=== PATIENT | male | born 1985 | race Caucasian/White ===

== ENCOUNTER 2016-12-28 17:00 | Emergency (ER) | payer SELFPAY ==
[~2016-12-28] VITALS: Ht 188 cm; Wt 80.2 kg
[2016-12-28 17:02] VITALS: BP 118/78; PULSE 79; TEMP 36.9; O2SAT 100; Ht 188 cm; Wt 80.2 kg
--- NOTE | 2016-12-28 19:21 | DIAGNOSTIC IMAGING REPORT ---
RIGHT HEEL MIN 2 VIEWS CLINICAL HISTORY: right, heel pain Right COMPARISON STUDY: None. FINDINGS: Tiny plantar heel spur. No fracture or dislocation within the calcaneus. Mild soft tissue swelling at the plantar surface of the heel. No radiopaque foreign bodies. IMPRESSION: No fractures within the right calcaneus. Mild soft tissue swelling along the plantar surface. Electronically signed by: Olivier Boston M.D. 12/28/2016 7:20 PM Dictated Date/Time: 12/28/2016 7:19 PM
[2016-12-28] MEDS ORDERED: IBUP-1451 PO (19:36)
[2016-12-28] MEDS ORDERED: TRAM-10 PO (19:36)
--- NOTE | 2016-12-28 19:38 | EMERGENCY ROOM VISIT NOTE ---
ED Visit Note First contact with patient: 18:26 CHIEF COMPLAINT: Right heel pain times one week, mid and low back pain 1 week HISTORY OF PRESENT ILLNESS: Patient is a right-hand dominant 31-year-old white male who presents to the emergency department for evaluation of multiple complaints. Primarily he is concerned as he has been having pain in the right heel over 1 week. He notes feeling a lump in the heel, medially. He has pain with walking. He denies any trauma or injury to the area. He has not worn any new shoes. He has no symptoms on the left side. He has performed nothing for his symptoms. Secondly, the patient reports pain in the mid right back between the spine and the scapula, and pain in the low back. The low back pain is chronic for him. The mid back pain has been going on for about a week. He works in construction. He denies any radiation of the pain into his arms or his legs. No numbness, tingling or weakness to the extremities. No bowel or bladder incontinence. He rates his pain an 8/10. REVIEW OF SYSTEMS: Review of systems as per HPI. All other systems reviewed were negative. At least 6 systems reviewed. PMH: Electronic medical records are reviewed and summarized as above/below. See Problem List. SOCIAL HISTORY: Patient lives at home. Smoker. Works in construction. He reports that he is from [place] and moved here about 4 months ago. PHYSICAL EXAM: Vital Signs: Reviewed Nurse's notes. MENTAL STATUS: Patient is a well-appearing 31-year-old white male who is awake and alert and in no acute distress. EXTREMITIES: Examination of the right heel show slight increased callus formation medially where the patient has discomfort. He is tender to palpation, but the skin is intact. There are no corns no erythema or breaks in the skin. Certainly no signs of infection. He does not have any pain along the plantar fascia. No pain over the Achilles tendon or its insertion. Ankle and foot range of motion are full. The right lower extremity is neurovascularly intact. SPINE: Examination is patient's back does not show any curvature consistent with scoliosis. He has reproducible muscle tenderness in the right paraspinous muscular and rhomboid muscular distribution, between the thoracic spine and the scapula. Palpable spasms are noted. The patient has diffuse paraspinous muscle tenderness in the lumbar area. No pain over the SI joint or the sciatic notch. Flexion, extension, rotation and lateral bending are full. Negative straight leg raise testing bilaterally. Achilles and patellar DTRs are equal and symmetrical. EMERGENCY DEPARTMENT COURSE: X-ray of the right heel reveals slight soft tissue swelling, no fracture or bony abnormality. Differential diagnoses entertained included stress fracture, heel spur, cellulitis, tendinitis, bursitis, plantar fasciitis, among others. The patient was encouraged to wear supportive shoes, ice and take ibuprofen for discomfort. With regards to his back, he is experiencing some localized musculoskeletal soreness and spasm. This appears to be chronic in nature. It was not felt that there was any need for any diagnostic imaging as the patient does not provide a history of direct trauma to the mid or low back. The patient was prescribed tramadol for pain. I certainly do not suspect cauda equina syndrome or acute cord compression. Patient was reviewed in the [facility] Prescription Drug Monitoring Program, and there were no red flags noted, however, the patient reported moving to the area only recently. He reported that he was from [place] yet gave a [place] mailing address and has a [place] drivers license. He was also noted to be here with another chronic pain patient who had trouble over from [place]. His coach driver was a family member of the other patient. Given this I did elect to treat him with nonnarcotic medications. Upon discharge, the patient told me I could "keep the prescription for ibuprofen." I told him that it had already been sent electronically to the pharmacy. He left without receiving written discharge instructions. Current/Historical Medications Scheduled Ibuprofen Tab (Motrin), 800 MG PO TIDM Scheduled PRN Tramadol (Ultram), 1-2 TABS PO Q4H PRN for Pain Allergies Coded Allergies: No Known Allergies (Unverified , 12/28/16) Vital Signs Date Time Temp Pulse Resp B/P Pulse Ox O2 Delivery O2 Flow Rate FiO2 12/28/16 17:02 36.9 79 16 118/78 100 Room Air Departure Information Impression Primary Impression: Pain of right heel Additional Impressions: Spasm of thoracic back muscle Low back pain Prescriptions Ibuprofen Tab (MOTRIN) 800 Mg Tab 800 MG PO TIDM, #60 TAB Prov: Katlyn Hahn PA 12/28/16 Tramadol (Ultram) 50 Mg Tab 1-2 TABS PO Q4H Y for Pain, #20 TAB For Initial Treatment Prov: Katlyn Hahn PA 12/28/16 Referrals No Doctor, Assigned (PCP) Patient Instructions My [facility] Additional Instructions Tramadol (Ultram) 50mg: Take 1-2 pills every four hours for breakthrough pain. Avoid alcohol, operating machinery or dangerous equipment, working on ladders or roofs, DRIVING, or situations where being under the influence may be dangerous. It is recommended to use an uned-[id number]-[id number] stool softener such as Colace, 100mg twice daily while taking this medication to avoid constipation. Ibuprofen(Motrin, Advil) may be used for fever or pain. Use 800 mg 3 times daily with food. Avoid using more than 2400mg in a 24 hour period. Do not use 2400mg per day for more than three consecutive days without physician direction. Prolonged inappropriate use can lead to stomach upset or ulcers. This medication can be taken if you need to drive, work, or perform activities which may be dangerous when taking narcotic pain medication. Acetaminophen(Tylenol) may be used for fever or pain. Use 1000mg every six hours as needed. Avoid using more than 3000mg in a 24 hour period. This medication can be taken if you need to drive, work, or perform activities which may be dangerous when taking narcotic pain medication. Ice compresses to the heel for 20 minutes at a time four times daily for 2-3 days. Moist heat to the mid and low back and gentle stretching and range of motion exercises to help reduce stiffness and spasm. Rest and elevate your injury. Continue current medications. Return to the ER immediately for any numbness, tingling, severe pain, extreme swelling in the extremity or as needed. Follow-up with orthopedics or your family doctor if your symptoms are not improving in the next 7 days. Problem Qualifiers
== END 2016-12-28 19:40 | disposition home or self-care (01) ==
LOC: C.EDB 17:01 → C.EDD 19:40
DX: M79.671 Pain in right foot (principal); M62.830 Muscle spasm of back; M54.5 Low back pain

== ENCOUNTER 2017-02-08 16:56 | Emergency (ER) | payer OTHER ==
[~2017-02-08] VITALS: Ht 188 cm; Wt 80.4 kg
[~2017-02-08 16:56] MED LIST: IBUP-1451 PO; TRAM-10 PO
[2017-02-08 16:57] VITALS: TEMP 36.7; Ht 188 cm; Wt 80.4 kg
[2017-02-08] MEDS ORDERED: KETOROLAC TROMETHAMINE 30 MG/ML VIAL IV STA (17:11)
[2017-02-08] MEDS ORDERED: SODIUM CHLORIDE 0.9% 1000ML 1,000 ML IV ONE (17:15)
[2017-02-08 17:38] LABS: BASO % 0.3 %; BASO ABS # 0.02 K/uL (0-0.2); COMPLETE YES; EOS % 1.7 %; HEMATOCRIT 44.5 % (42-52); IG% 0.1 %; LYMPH % 22.7 %; MEAN CELL VOLUME 90.6 fL (80-100); MEAN CORPUSCULAR HEMOGLOBIN 31.4 pg (25-34); MEAN CORPUSCULAR HGB CONC 34.6 g/dl (32-36); MEAN PLATELET VOLUME 11.9 fL (7.4-10.4); MONO % 7.2 %; PLATELET COUNT 169 K/uL (130-400); RED BLOOD COUNT 4.91 M/uL (4.7-6.1); WHITE BLOOD COUNT 7.05 K/uL (4.8-10.8)
[2017-02-08 17:56] LABS: BUN/CREATININE RATIO 8.8 (10-20); CALCIUM 8.7 mg/dl (8.5-10.1); CREATININE 0.93 mg/dl (0.60-1.40); POTASSIUM 3.8 mmol/L (3.5-5.1)
[2017-02-08 17:58] LABS: ALB/GLOB RATIO 1.2 (0.9-2)
--- NOTE | 2017-02-08 18:15 | DIAGNOSTIC IMAGING REPORT ---
LEFT LOWER EXTREMITY VENOUS DOPPLER CLINICAL HISTORY: Left calf pain COMPARISON STUDY: No previous studies for comparison. TECHNIQUE: Sonography of the deep venous system of the left lower extremity was performed. Compression and augmentation were evaluated. FINDINGS: The left common femoral, superficial femoral and popliteal veins were compressible. Augmentation was normal. Flow was shown within the deep calf vessels. IMPRESSION: No evidence of deep venous thrombus within the left lower extremity. Electronically signed by: Clint Perdomo M.D. 02/08/2017 6:14 PM Dictated Date/Time: 02/08/2017 6:14 PM
--- NOTE | 2017-02-08 18:31 | DIAGNOSTIC IMAGING REPORT ---
RIGHT SHOULDER MIN 2 VIEWS ROUTINE CLINICAL HISTORY: Right shoulder pain. No trauma. COMPARISON: None FINDINGS: Alignment of the right shoulder is anatomic. There is no acute fracture. There is a possible old Hill-Sachs. There are minimal degenerative changes of the right glenohumeral and acromioclavicular joints. IMPRESSION: 1. No acute fracture or dislocation of the right shoulder. 2. Mild degenerative changes of the right shoulder. 3. Possible old Hill-Sachs. Electronically signed by: Clint Perdomo M.D. 02/08/2017 6:29 PM Dictated Date/Time: 02/08/2017 6:28 PM
[2017-02-08 18:58] VITALS: BP 109/60; PULSE 58; O2SAT 100
[2017-02-08] MEDS ORDERED: HYDR-5688 PO (19:09)
[2017-02-08] MEDS ORDERED: PRED20TA2 PO (19:09)
[2017-02-08] MEDS ORDERED: NORCO 5/325MG HOME PACK PO ONE (19:15)
--- NOTE | 2017-02-08 19:24 | EMERGENCY ROOM VISIT NOTE ---
History First contact with patient: 17:02 Chief Complaint: LEG PAIN,LEG INJURY Stated Complaint: LF LEG/RT SHOULDER PAIN History of Present Illness The patient is a 32 year old male who presents to the Emergency Room with complaints of right shoulder pain and left calf pain for the past few days. The patient does not recall a distinct trauma to explain his symptoms. He has been helping to hang drywall, which is a new activity to him. The patient does not have significant recent travel history. He is without chest pain, chest tightness, or shortness of breath. No fever or chills. He does not have a history of DVT or chronic shoulder disease. He rates his overall discomfort a 6 /10 and has not taken anything [id number] for his symptoms. Review of Systems More than 10 systems were reviewed and otherwise negative with the exception of history of present illness. Past Medical/Surgical History Medical Problems: (1) No Known Active Medical Problems Family History No pertinent family history Social History Smoking Status: Current Every Day Smoker Occupation Status: employed Current/Historical Medications Scheduled Prednisone (Prednisone Tab), 2 TAB PO DAILY Scheduled PRN Hydrocodone/Acetaminophen 5MG/325MG (Bethune 5MG/325MG), 1 TABLET PO Q6 PRN for Pain Allergies Coded Allergies: No Known Allergies (Unverified , 02/08/17) Physical Exam Vital Signs Date Time Temp Pulse Resp B/P Pulse Ox O2 Delivery O2 Flow Rate FiO2 02/08/17 18:58 58 18 109/60 100 Room Air 02/08/17 16:57 36.7 84 16 108/75 100 Room Air Physical Exam VITALS: Vitals are noted on the nurse's note and reviewed by myself. Vital signs stable. GENERAL: Well-developed, well-nourished, white male, who is in no acute distress and resting comfortably. Patient is cooperative with the examination. NECK: Supple without nuchal rigidity. No lymphadenopathy. No thyromegaly. Cervical spine is nontender. HEART: Regular rate and rhythm without murmurs gallops or rubs. LUNGS: Clear to auscultation bilaterally without wheezes, rales or rhonchi. No retractions or accessory muscle use. ABDOMEN: Positive normal bowel sounds x 4. Soft, nontender, without masses or organomegaly. No guarding or rebound tenderness. MUSCULOSKELETAL: Positive tenderness appreciated throughout the superior scapular ridge on the right. Positive empty can. No gross deformity noted throughout the right upper extremity. Neurovascular status is intact distally. Patient is able to internally and externally rotate. The left calf is slightly tender over the medial gastroc without palpable cord, edema, or erythema. NEURO: Patient was alert and oriented to person place and time. CN II through XII grossly intact. Medical Decision & Procedures ER Provider Diagnostic Interpretation: RIGHT SHOULDER MIN 2 VIEWS ROUTINE CLINICAL HISTORY: Right shoulder pain. No trauma. COMPARISON: None FINDINGS: Alignment of the right shoulder is anatomic. There is no acute fracture. There is a possible old Hill-Sachs. There are minimal degenerative changes of the right glenohumeral and acromioclavicular joints. IMPRESSION: 1. No acute fracture or dislocation of the right shoulder. 2. Mild degenerative changes of the right shoulder. 3. Possible old Hill-Sachs. LEFT LOWER EXTREMITY VENOUS DOPPLER CLINICAL HISTORY: Left calf pain COMPARISON STUDY: No previous studies for comparison. TECHNIQUE: Sonography of the deep venous system of the left lower extremity was performed. Compression and augmentation were evaluated. FINDINGS: The left common femoral, superficial femoral and popliteal veins were compressible. Augmentation was normal. Flow was shown within the deep calf vessels. IMPRESSION: No evidence of deep venous thrombus within the left lower extremity. Laboratory Results 02/08/17 17:24 Red Blood Count 4.91, Mean Corpuscular Volume 90.6, Mean Corpuscular Hemoglobin 31.4, Mean Corpuscular Hemoglobin Concent 34.6, Mean Platelet Volume 11.9, Neutrophils (%) (Auto) 68.0, Lymphocytes (%) (Auto) 22.7, Monocytes (%) (Auto) 7.2, Eosinophils (%) (Auto) 1.7, Basophils (%) (Auto) 0.3, Neutrophils # (Auto) 4.79, Lymphocytes # (Auto) 1.60, Monocytes # (Auto) 0.51, Eosinophils # (Auto) 0.12, Basophils # (Auto) 0.02 02/08/17 17:24 Test 02/08/17 17:24 02/08/17 17:28 White Blood Count 7.05 K/uL (4.8-10.8) Red Blood Count 4.91 M/uL (4.7-6.1) Hemoglobin 15.4 g/dL (14.0-18.0) Hematocrit 44.5 % (42-52) Mean Corpuscular Volume 90.6 fL (80-100) Mean Corpuscular Hemoglobin 31.4 pg (25-34) Mean Corpuscular Hemoglobin Concent 34.6 g/dl (32-36) Platelet Count 169 K/uL (130-400) Mean Platelet Volume 11.9 fL (7.4-10.4) Neutrophils (%) (Auto) 68.0 % Lymphocytes (%) (Auto) 22.7 % Monocytes (%) (Auto) 7.2 % Eosinophils (%) (Auto) 1.7 % Basophils (%) (Auto) 0.3 % Neutrophils # (Auto) 4.79 K/uL (1.4-6.5) Lymphocytes # (Auto) 1.60 K/uL (1.2-3.4) Monocytes # (Auto) 0.51 K/uL (0.11-0.59) Eosinophils # (Auto) 0.12 K/uL (0-0.5) Basophils # (Auto) 0.02 K/uL (0-0.2) RDW Standard Deviation 45.5 fL (36.4-46.3) RDW Coefficient of Variation 13.8 % (11.5-14.5) Immature Granulocyte % (Auto) 0.1 % Immature Granulocyte # (Auto) 0.01 K/uL (0.00-0.02) Anion Gap 5.0 mmol/L (3-11) Est Creatinine Clear Calc Drug Dose 127.3 ml/min Estimated GFR () 123.7 Estimated GFR (Non- 106.7 BUN/Creatinine Ratio 8.8 (10-20) Calcium Level 8.7 mg/dl (8.5-10.1) Total Bilirubin 0.4 mg/dl (0.2-1) Aspartate Amino Transf (AST/SGOT) 14 U/L (15-37) Alanine Aminotransferase (ALT/SGPT) 19 U/L (12-78) Alkaline Phosphatase 57 U/L (45-117) Total Protein 6.9 gm/dl (6.4-8.2) Albumin 3.8 gm/dl (3.4-5.0) Globulin 3.1 gm/dl (2.5-4.0) Albumin/Globulin Ratio 1.2 (0.9-2) Bedside D-Dimer 92 ng/mlFEU (0-450) Medications Administered Medications (Trade) Dose Ordered Sig/Hugo Route Start Time Stop Time Status Last Admin Dose Admin Sodium Chloride (Nss 1000ml) 1,000 ml @ 999 mls/hr Q1H1M ONCE IV 02/08/17 17:15 02/08/17 18:15 DC 02/08/17 17:36 999 MLS/HR Ketorolac Tromethamine (Toradol Inj) 30 mg NOW STAT IV 02/08/17 17:11 02/08/17 17:12 DC 02/08/17 17:36 30 MG Acetaminophen/ Hydrocodone Bitart (Bethune 5/325mg Home Pack) 1 homepack UD ONCE PO 02/08/17 19:15 02/08/17 19:16 DC 02/08/17 19:14 1 HOMEPACK ED Course Physical exam and history were performed. Nursing notes and EMR were reviewed. Patient appears to have vague right shoulder pain as well as left calf tenderness over the past few days. He does not report a distinct injury or trauma. Because of his symptoms I did elect to ultrasound the left leg and have plain films performed of the right shoulder. IV access was established and labs were also obtained. The patient was hydrated and medicated as above. The patient blood work does not show a significantly elevated white blood cell count, gross anemia, bandemia, or significant joint imbalance. D-dimer is negative. Ultrasound does not show evidence of DVT. Right shoulder does not show acute findings on x-ray. I discussed options of care with the patient, who appears stable for discharge home. He will be given a short course of Vicodin and prednisone for his symptoms. I will also provide him a referral to orthopedics. Clinically I suspect his symptoms are from hanging drywall this week, which appears to be a new activity for the patient. He may have some rotator cuff tendinitis and strain of his gastroc. The patient was asked to monitor for worsening or evolving symptoms. He was otherwise invited back to the ER with any new, worsening, or concerning symptoms. The chart was completed utilizing [employer] Voice Recognition Software. Grammatical errors, random word insertions, pronoun errors, and incomplete sentences are an occasional consequence of this system due to software limitations, ambient noise, and hardware issues. Any formal questions or concerns about the content, text, or information contained within the body of this dictation should be directly addressed to the provider for clarification. . Medical Decision Differential diagnosis includes, but is not limited to: Sprain, strain, fracture , dislocation, subluxation, contusion, DVT/PE, and others Impression Primary Impression: Right shoulder pain Additional Impression: Pain of left calf Departure Information Dispostion Home / Self-Care Condition GOOD Prescriptions Hydrocodone/Acetaminophen 5MG/325MG (Bethune 5MG/325MG) Tab 1 TABLET PO Q6 Y for Pain, #12 TAB For Initial Treatment Prov: Markel Cortez PA-C 02/08/17 Prednisone (Prednisone Tab) 20 Mg Tab 2 TAB PO DAILY for 5 Days, #10 TAB Prov: Markel Cortez PA-C 02/08/17 Referrals Jalil Urias D.O. Forms HOME CARE DOCUMENTATION FORM, IMPORTANT VISIT INFORMATION Patient Instructions My [facility] Additional Instructions You were seen and evaluated today on an emergency basis only. This is not a substitute for, or an effort to provide, complete comprehensive medical care. It is not possible to recognize and treat all injuries or illnesses in a single emergency department visit. For this reason it is recommended that you followup with [facility] , Dr. Urias's office, by telephone Friday to arrange a follow-up visit. For baseline pain relief you may alternate ibuprofen and acetaminophen every 4 hours for pain control. Take 600 mg ibuprofen (Advil) and then 4 hours later take 1000 mg acetaminophen (Tylenol). Do not take more than 3000 mg acetaminophen in a single day. Bethune (hydrocodone/acetaminophen) 5/325 mg every 6 hours as needed for worsening breakthrough pain. Do not drink or drive on [place]. This medication will likely make you tired. Do not take Bethune and Tylenol at the same time as both contain acetaminophen. Bethune may cause constipation. You may wish to take an [id number] stool softener like Colace if this occurs. Take prednisone as prescribed You are welcome to return to the emergency department anytime with new, worsening, or concerning symptoms. Problem Qualifiers
== END 2017-02-08 19:19 | disposition home or self-care (01) ==
LOC: C.EDB 16:57 → C.EDD 19:19
DX: M25.511 Pain in right shoulder (principal); M79.662 Pain in left lower leg; F17.200 Nicotine dependence, unspecified, uncomplicated

== ENCOUNTER → 2017-11-20 | Outpatient (CLI) | payer OTHER ==
--- NOTE | 2017-11-20 17:49 | DIAGNOSTIC IMAGING REPORT ---
CERVICAL WITHOUT CONTRAST HISTORY: Pain. Neuropathy. NECK PAIN TECHNIQUE: Multiplanar multisequence MRI of the cervical spine was performed without the use of contrast. COMPARISON STUDY: None. FINDINGS: Normal signal characteristics the vertebral bodies as well as intervertebral discs. Slight reversal of the normal cervical curvature possibly due to patient positioning or muscular spasm. Signal characteristics the cervical cord transaxially are unremarkable as are the sagittal images. Complex nodular density deep to the superior right sternocleidomastoid muscle measuring 1.9 x 1.1 cm. Etiology is not clear given the absence of postcontrast images. Ultrasound the region is suggested. C2-C3: No significant central canal or neural foraminal narrowing. C3-C4: No significant central canal or neural foraminal narrowing. C4-C5: No significant central canal or neural foraminal narrowing. C5-C6: No significant central canal or neural foraminal narrowing. C6-C7: No significant central canal or neural foraminal narrowing. C7-T1: No significant central canal or neural foraminal narrowing. IMPRESSION: 1. Negative study specifically of the cervical spine. 2. Possible 1.9 x 1.1 cm atypical lymph node versus complex cystic nodule deep to the right parotid gland and deep to the right sternocleidomastoid muscle at approximately level of C3. 3. Ultrasound of the soft tissue neck on the right is suggested as follow-up. The above report was generated using voice recognition software. It may contain grammatical, syntax or spelling errors. Electronically signed by: Tahir Ledesma M.D. 11/20/2017 5:48 PM Dictated Date/Time: 11/20/2017 5:36 PM
== END | disposition home or self-care (01) ==
PROVIDERS: ATTEND Family Medicine
DX: M54.2 Cervicalgia (principal); R29.898 Other symptoms and signs involving the musculoskeletal system; M79.601 Pain in right arm; M79.602 Pain in left arm; F17.210 Nicotine dependence, cigarettes, uncomplicated; R93.7 Abnormal findings on diagnostic imaging of other parts of musculoskeletal system